=== PATIENT | female | born 1965 | race African-American/Black ===

== ENCOUNTER 2022-04-21 08:34 | Outpatient (CLI) | payer OTHER, SELFPAY ==
--- NOTE | ~2022-04-21 | US_ITS ---
EXAMINATION: US right upper quadrant DATE: 04/21/2022 09:00 INDICATION: Liver mass on CT TECHNIQUE: Multiple grayscale and Doppler ultrasound images of the abdomen were obtained. COMPARISON: CT, 11/27/2021 FINDINGS: Bowel gas obscures visualization of the pancreas. The visualized portions of the pancreas a re unremarkable. The liver masses described on CT is not definitely identified. The liver is normal w ith normal echogenicity and echotexture. No surface nodularity. Normal hepatopetal flow in the main p ortal vein. The gallbladder is normal with no abnormal wall thickening, pericholecystic fluid or ston es. The normal common bile duct measures 4 mm. There was no sonographic Olivares sign. IMPRESSION: 1. Liver mass on CT not definitely identified. Reviewed, dictated and finalized at location B.
== END 2022-04-21 08:35 | disposition home or self-care (01) ==
LOC: ANHIMG 08:38
PROVIDERS: PCP Physician Assistant; Visit Provider Physician Assistant
DX: R16.0 Hepatomegaly, not elsewhere classified (principal)
CPT/HCPCS: 76705